=== PATIENT | male | born 1990 | race Caucasian/White ===

== ENCOUNTER 2019-01-22 05:54 | Observation (INO) | payer SELFPAY ==
[2019-01-22] MEDS ORDERED: Morphine 4 MG/ML VIAL SLOW IVP PRN (06:00)
[2019-01-22] MEDS ORDERED: Ondansetron ODT 4 MG TAB SL PRN (06:00)
[2019-01-22] MEDS ORDERED: Ondansetron PF 4 MG/2 ML Vial IVP PRN (06:00)
[2019-01-22] MEDS ORDERED: Sodium Chloride 0.9% 1,000 ML IV SCH ×2 (06:00→10:24)
[2019-01-22] MEDS ORDERED: Rocuronium Bromide 10 MG/ML (10ML VIAL) ONE (09:34)
[2019-01-22] MEDS ORDERED: Dexamethasone 20 MG/5 ML VIAL ONE (09:34)
[2019-01-22] MEDS ORDERED: Glycopyrrolate 0.2 MG/ML 5 ML SYRINGE ONE (09:34)
[2019-01-22] MEDS ORDERED: Lidocaine 1% PF 5 ML VIAL ONE (09:34)
[2019-01-22] MEDS ORDERED: Ondansetron PF 4 MG/2 ML Vial ONE (09:34)
[2019-01-22] MEDS ORDERED: PROPOFOL 200 MG/20 ML VIAL ONE (09:34)
[2019-01-22 09:46] VITALS: BMI 29.5
[2019-01-22] MEDS ORDERED: Acetaminophen 1,000 MG in Premix Bag 1 BAG IVPB SCH (10:30)
[2019-01-22] MEDS ORDERED: Ketorolac Tromethamine 30 MG/ML VIAL IVP SCH (10:30)
--- NOTE | 2019-01-22 10:45 | HP ---
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 He has been having right upper quadrant pain and nausea for the past two months. He presents to the emergency room. CAT scan reveals changes consistent with cholecystitis, nondilated bile duct, normal liver function test, and gallstones. He has been admitted to the floor. SOCIAL HISTORY: 1/2 pack per day. Alcohol, none. MEDICATIONS: None routinely. PAST SURGICAL AND MEDICAL HISTORY: None routinely. ALLERGIES: PENICILLIN AND HYDROCODONE. HE WAS TOLD HE IS ALLERGIC TO PENICILLIN BY HIS GRANDMOTHER. HE DOES NOT KNOW WHAT REACTION; HYDROCODONE GIVES HIM RASH. HE CAN TAKE ULTRAM AND CODEINE PRODUCTS FAR HE KNOWS. REVIEW OF SYSTEMS: Ten-point noncontributory. FAMILY HISTORY: Noncontributory. PHYSICAL EXAMINATION: VITAL SIGNS: Height 5 feet 9 inches, weight , temperature 97.6, pulse 83, and blood pressure 119/80. HEAD, EARS, EYES, NOSE, AND THROAT: Unremarkable. LUNGS: Clear to auscultation. CARDIAC: Regular rate and rhythm without murmur or gallop. ABDOMEN: Tenderness in right upper quadrant. No guarding or rebound. Positive Perry sign. EXTREMITIES: Unremarkable. NEUROLOGIC: Intact. No deficits. No lymphadenopathy at neck, axilla, or groin. ASSESSMENT AND PLAN: Acute cholecystitis, cholelithiasis. Recommend laparoscopic video cholecystectomy. Risks of infection, bleeding, visceral and biliary injury explained, he consents. Job ID: [id number]
[2019-01-22] MEDS ORDERED: Morphine 4 MG/ML VIAL ONE (12:07)
[2019-01-22] MEDS ORDERED: Acetaminophen 500 MG TAB PO PRN (13:41)
[2019-01-22] MEDS ORDERED: Ibuprofen 600 MG TAB PO PRN (13:41)
[2019-01-22] MEDS ORDERED: traMADol HCl 50 MG TAB PO PRN ×2 (13:41)
[2019-01-22] MEDS ORDERED: Lidocaine 1% w/Epinephrine 1:100K 20 ML VIAL ONE (14:20)
[2019-01-22] MEDS ORDERED: Bupivacaine PF 0.5% 30 ML VIAL ONE (14:20)
[2019-01-22] MEDS ORDERED: Fentanyl 250 MCG/5 ML VIAL ONE (14:21)
[2019-01-22] MEDS ORDERED: Midazolam HCl 2 mg/2 ml Vial ONE (14:21)
[2019-01-22] MEDS ORDERED: Acetaminophen 1,000 MG in Premix Bag 1 BAG IVPB PRN (16:00)
[2019-01-22] MEDS ORDERED: Ketorolac Tromethamine 30 MG/ML VIAL IVP PRN (16:00)
[2019-01-22] MEDS ORDERED: Promethazine HCl 25 MG/ML VIAL IM PRN (16:21)
[2019-01-22] MEDS ORDERED: Promethazine HCl 25 MG/ML VIAL SLOW IVP PRN (16:21)
[2019-01-22] MEDS ORDERED: Ondansetron HCl/PF 4 MG/2 ML Vial IVP PRN (16:21)
[2019-01-22] MEDS ORDERED: Fentanyl 100 MCG/2 ML VIAL ONE (16:33)
--- NOTE | 2019-01-22 16:54 | OP ---
DATE OF PROCEDURE: 01/22/2019 PREOPERATIVE DIAGNOSES: 1. Acute cholecystitis. 2. Cholelithiasis. POSTOPERATIVE DIAGNOSES: 1. Acute cholecystitis. 2. Cholelithiasis. PROCEDURE PERFORMED: Laparoscopic video cholecystectomy. ANESTHESIA: General, local with 0.5% Marcaine 30 mL mixed with 1% Xylocaine with epinephrine 30 mL, 40 mL actually were used. DESCRIPTION OF PROCEDURE: The patient was taken to the operating room, where under general anesthesia, abdomen was prepared with ChloraPrep and draped in routine fashion. Local anesthetic mixture was infiltrated into the skin and subcutaneous tissue about each port site. Infraumbilical incision made. Pneumoperitoneum to 15 mmHg was obtained with a Veress needle, replaced with a 5 port, laparoscope inserted. Right subxiphoid incision was made and 11 port placed, right subcostal incision was made at midclavicular entrance line and 5 port was placed. Liver appeared to be normal. Gallbladder was acutely inflamed with stones obstructing the outlet. Cystic artery and duct dissected free. Critical view obtained. Cystic artery and duct doubly clipped proximally, divided, gallbladder dissected free from liver bed, obtaining good hemostasis prior to division of the final peritoneal attachments. Gallbladder and contents removed, submitted to Pathology. Good hemostasis ensured with cautery. Mirtha was applied. Good hemostasis noted. Irrigant and pneumoperitoneum evacuated. All instruments were removed. All skin incisions were approximated with interrupted subdermal 4-0 Monocryl and [place] glue applied. Job ID: [id number]
[2019-01-22 20:26] VITALS: BP 115/72; TEMP 97
--- NOTE | 2019-01-23 14:57 | DIS ---
DATE OF ADMISSION: 01/22/2019 DATE OF DISCHARGE: 01/22/2019 DIAGNOSES: 1. Cholecystitis. 2. Cholelithiasis. PROCEDURE: Laparoscopic cholecystectomy. HOSPITAL COURSE: A 28-year-old male, local combination truck driver from [place], acute cholecystitis going on for more than 4 weeks, diagnosed, treated as peptic ulcer disease without relief, underwent a CAT scan documenting cholecystitis and cholelithiasis, underwent laparoscopic video cholecystectomy, discharged home. Follow up in my office in 1 to 2 weeks. Diet and activity as tolerated. Job ID: [id number]
== END 2019-01-22 20:00 | disposition home or self-care (01) ==
LOC: ERS 05:54 → SURG B 07:58
PROVIDERS: ADMIT Surgery; ATTEND Surgery
PROC: 0FT44ZZ Resection of Gallbladder, Percutaneous Endoscopic Approach (ICD-10-PCS; principal; 2019-01-22)
DX: K80.12 Calculus of gallbladder with acute and chronic cholecystitis without obstruction (principal); F15.10 Other stimulant abuse, uncomplicated; F17.210 Nicotine dependence, cigarettes, uncomplicated
CPT/HCPCS: 88304; 96374; 96375; 96376; 99284; G0378; J0131; J1100; J1885; J1956; J2001; J2250; J2270; J2405; J2704; J3010; S0020